=== PATIENT | female | born 1990 | race Caucasian/White ===

== ENCOUNTER 2016-08-12 21:43 | Emergency (ER) | payer BC, OTHER ==
[2016-08-12 21:57] VITALS: O2SAT 100
[2016-08-12] MEDS ORDERED: Sodium Chloride 0.9% 1,000 ML IV ONE (22:39)
--- NOTE | 2016-08-12 22:39 | C.PDOC ---
History Of Present Illness 25 y/o female, , approximately 6 weeks , presents to ED with complaint of vaginal bleeding for the last 6 hours. Denies fever, chills, nausea , or vomiting. Time Seen by Provider: 08/12/16 22:38 Chief Complaint (Nursing): Female Genitourinary History Per: Patient History/Exam Limitations: no limitations Onset/Duration Of Symptoms: Days Current Symptoms Are (Timing): Still Present Pain Scale Rating Of: 0 Associated Symptoms: denies: Fever, Chills, Nausea, Vomiting Recent travel outside of the [place]: No Abnormal Vaginal Bleeding: Yes Past Medical History Reviewed: Historical Data, Nursing Documentation, Vital Signs Vital Signs: Last Vital Signs Temp 98.2 F 08/12/16 21:54 Pulse 81 08/12/16 21:54 Resp 20 08/12/16 21:54 BP 121/80 08/12/16 21:54 Pulse Ox 100 08/12/16 22:45 - Medical History PMH: No Chronic Diseases Family History: States: Unknown Family Hx - Social History Hx Tobacco Use: No Hx Alcohol Use: No Hx Substance Use: No - Immunization History Hx Tetanus Toxoid Vaccination: No Hx Influenza Vaccination: No Hx Pneumococcal Vaccination: No Review Of Systems Constitutional: Negative for: Fever, Chills Respiratory: Negative for: Cough, Wheezing Gastrointestinal: Negative for: Nausea, Vomiting, Diarrhea Genitourinary: Positive for: Vaginal Bleeding Skin: Negative for: Rash Neurological: Negative for: Dizziness Physical Exam - Physical Exam Appears: Non-toxic, No Acute Distress Skin: Warm, Dry Head: Atraumatic, Normacephalic Chest: Symmetrical Cardiovascular: Rhythm Regular Respiratory: No Rales, No Rhonchi, No Wheezing Gastrointestinal/Abdominal: Soft, Tenderness (mild, suprapubic), No Guarding, No Rebound Back: Normal Inspection, No CVA Tenderness Extremity: Normal ROM, Capillary Refill (< 2 sec. ) Neurological/Psych: Oriented x3, Normal Speech, Normal Cognition ED Course And Treatment - Laboratory Results Result Diagrams: 08/12/16 23:27 08/12/16 23:27 O2 Sat by Pulse Oximetry: 100 (RA) Pulse Ox Interpretation: Normal Progress Note: blood work, ivf, Pelvic US Reevaluation Time: 02:30 Reassessment Condition: Improved Disposition Counseled Patient/Family Regarding: Studies Performed, Diagnosis, Need For Followup - Disposition Referrals: [facility] [Outside] Disposition: HOME/ ROUTINE Disposition Time: 22:39 Condition: FAIR Instructions: Threatened Miscarriage (ED), Subchorionic Hemorrhage (ED) - Clinical Impression Clinical Impression: Threatened , Subchorionic hemorrhage - Scribe Statement The provider has reviewed the documentation as recorded by the Wilbertibe Yosvany Hand Provider Scribe Attestation: All medical record entries made by the Wilbertibe were at my direction and personally dictated by me. I have reviewed the chart and agree that the record accurately reflects my personal performance of the history, physical exam, medical decision making, and the department course for this patient. I have also personally directed, reviewed, and agree with the discharge instructions and disposition.
[2016-08-12 23:30] LABS: BASO # 0.2 K/uL (0.0-0.2); BASO % 1.2 % (0.0-2.0); EOS # 0.6 K/uL (0.0-0.7); EOS % 3.1 % (0.0-4.0); LYMPH # 5.1 K/uL (1.0-4.3); LYMPH % 26.9 % (20.0-40.0); MEAN CELL VOLUME 86.3 fL (81.0-99.0); MEAN CORPUSCULAR HEMOGLOBIN 28.7 pg (27.0-31.0); MEAN CORPUSCULAR HGB CONC 33.3 g/dL (33.0-37.0); MEAN PLATELET VOLUME 7.3 fL (7.2-11.7); MONO # 1.7 K/uL (0.0-0.8); MONO % 8.7 % (0.0-10.0); RED CELL DISTRIBUTION WIDTH 12.5 % (11.5-14.5)
[2016-08-12 23:34] LABS: RBC URINE 118 /hpf (0-3); TRANSITIONAL EPITHIAL < 1 /hpf (0-3); URINE BACTERIA RARE (<OCC); URINE BILIRUBIN NEGATIVE (NEGATIVE); URINE BLOOD 3+ (NEGATIVE); URINE COLOR Straw (YELLOW); URINE GLUCOSE (UA) NORMAL (Normal); URINE KETONE NEGATIVE (NEGATIVE); URINE LEUKOCYTE ESTERASE NEG Leu/uL (Negative); URINE PROTEIN NEGATIVE (NEGATIVE); URINE UROBILINOGEN NORMAL mg/dL (0.2-1.0); WBC URINE 3 /hpf (0-5)
[2016-08-12 23:38] LABS: INR 1.1
[2016-08-12 23:39] LABS: CHLORIDE 99 mmol/L (98-107); POTASSIUM 3.7 mmol/L (3.6-5.2); SODIUM 135 mmol/L (132-148)
[2016-08-12 23:41] LABS: AST/SGOT 17 U/L (14-36); BILIRUBIN,TOTAL < 0.1 mg/dL (0.2-1.3); CARBON DIOXIDE 26 mmol/L (22-30); GFR AFRICAN-AMERICAN > 60
[2016-08-12 23:42] LABS: ALB/GLOB RATIO 1.5 (1.0-2.1); ALKALINE PHOSPHATASE 74 U/L (38-126); ALT/SGPT 33 U/L (9-52); BLOOD UREA NITROGEN 10 mg/dL (7-17); CALCIUM 9.3 mg/dl (8.6-10.4); GLUCOSE,RANDOM 84 mg/dL (65-105); TOTAL PROTEIN 7.7 g/dL (6.3-8.3)
[2016-08-13 03:04] VITALS: BP 107/72; PULSE 86; RESP 17; TEMP 98.1
--- NOTE | 2016-08-13 12:56 | US ---
Pelvic ultrasound History: . Vaginal bleed. Comparison: None available. Technique: Real-time sonography was performed through the pelvis utilizing transabdominal and transvaginal techniques. Findings: Uterus: 9.2 x 3.9 x 5.2 centimeters. Anteverted. Cervix measures 3 centimeters. Intrauterine . Intrauterine gestational sac measures 1.7 centimeters corresponding to a gestational age of 6 weeks and 0 days. Focal heterogeneous foci measuring 1.6 x 0.6 x 1.2 centimeters and 1.5 x 0.5 x 1.1 centimeters adjacent to the gestational sac suggestive for subchorionic hemorrhage. Yolk sac measures 3.3 millimeters. [place]-rump length measures 5.6 millimeters corresponding to a gestational age of 6 weeks and 2 days. heart rate of 120 beats per minute. Free fluid noted within the pelvic cul-de-sac. Right ovary: 5.1 x 3.7 x 4.2 centimeters. Normal flow. Heterogeneous cyst measuring 3.0 x 3.1 x 2.9 centimeters. Left ovary: 3.2 x 2.2 x 2.0 centimeters. Normal flow. Impression: Single viable intrauterine corresponding to a gestational age of 6 weeks and 2 days with heart rate of 120 beats per minute. Two small foci of subchorionic hemorrhage, the larger of which measures 1.6 centimeters adjacent to the gestational sac. 3.1 centimeter right ovarian cyst. Limited 1st trimester ultrasound for viability purposes only. Continued interval followup with serial ultrasound, serial HCG levels, and gynecological consultation would be helpful if clinically indicated. These findings were preliminarily reported at 2:26 a.m. on 08/13/[address] Forrest Plata from [facility].
== END 2016-08-13 03:05 | disposition home or self-care (01) ==
LOC: C.ER 21:43
DX: O20.0 Threatened abortion (principal); O46.91 Antepartum hemorrhage, unspecified, first trimester; Z3A.01 Less than 8 weeks gestation of pregnancy
CPT/HCPCS: 76805; 76817; 80053; 81001; 84702; 85025; 85610; 85730; 86850; 86900; 96360; 99284; J7040